=== PATIENT | male | born 1995 | race Caucasian/White ===

== ENCOUNTER 2024-06-14 11:36 | Outpatient (AMB) | payer MEDICAID, SELFPAY ==
[2024-06-14 12:11] VITALS: BP 124/92; PULSE 94; O2SAT 97; BMI 26.1
--- NOTE | 2024-06-14 12:11 | MHC.OFFVIS ---
Vital Signs 06/14/24 12:11 Height 5 ft 6 in Weight 162 lb BMI 26.1 BP 124/92 H Blood Pressure Location Rt brachial Position Sitting Pulse 94 Pulse Source Pulse Oximeter Pulse Oximetry (%) 97 Oxygen Delivery Method Room Air Intake Visit Reasons: ENP-Chronic Migraines - LVM Intake Note: Patient presents for chronic migraines.patient has taken over the counter meds for his migraines. pcp has given patient meds for migraines with no help. Allergies No Known Allergies Allergy (Verified 06/14/24 12:13) Medication List - Last Reconciled 06/14/24 by VIRY Alan budesonide-formoterol 80-4.5 mcg/actuation (Symbicort) 2 puffs inhalation BID qtfiquheuc-jhrpjisijwyxp-obdd 50-300-40 mg 2 caps PO Q4H PRN fluticasone propionate 50 mcg/actuation 1 spray intranasal DAILY magnesium oxide 400 mg PO BEDTIME 30 days montelukast 10 mg PO BEDTIME propranolol ER 120 mg PO BEDTIME 30 days propranolol ER 80 mg PO DAILY riboflavin (vitamin B2) 400 mg PO DAILY 30 days sumatriptan succinate 50 - 100 mg orally at onset of headache, may repeat in 2 hrs PRN; max 2 tabs per day or 4 tabs/week (may take with Ibuprofen) 30 days sumatriptan succinate 4 mg subcutaneously at onset of migraine, may repeat x's 1 in 1 hr (max 8mg/day) PRN; 8 days HPI Comments Details: Right-handed 28-yr-old male presents for new pt evaluation of headache disorder. Pt reports he has had migraine attack since age 11. In the past, the attacks were always pretty frequent and severe, but OTC analgesics were helpful. More recently, however, the migraine attacks become severe quicker and are less treatment responsive. Has had 2 recent ER visits for migraine attacks. PMH and ROS are notable for:? Neuro: ppor vision- has prescription glasses. occasional diplopia- when not focusing or in shower, states he has a lazy eye- not sure which. Notes he cannot close just left eye but can close both eyes or just right eye. Denies eye pain or pain on eye movement. Respiratory d/o: Asthma- controlled on current tx plan, but be exacerbated by pollen count or exertion. Family history of migraine or other headache disorder: Mother has headaches. Pertinent denials include: Musculoskeletal disorders or injury, History of concussion/head injury, Mood d/o, Sleep d/o, CV disease, Clotting or hematology d/o, Endocrine d/o, metabolic d/o, History of seizure, syncope, or drop attacks, GI d/o, Constipation, Leg Cramps, Lifestyle considerations: Sleep routine: Usual bedtime: 10pm-12am and wake-up time: 6-8am Sleep difficulties: Denies. Can be sleepy in a car ride- has strategies to help this. But otherwise denies excessive sleepiness. Caffeine use: 1 12 oz can of coke per week day or 2 cans on the weekend. Substance use: Marijuana- gummies, Alcohol- 1 mixed drink per day. Exercise:? 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 Family planning: No current plans Headache questionnaire:? Previous work-up: None Types of headache disorders: 1 Typical headache characteristics: Prodrome symptoms: Unsure Aura: Denies Pain intensity: Starts mild and becomes severe Location, quality, characteristics: Pressure type pain. Location moves during the attack. Associated symptoms: Blurry vision and watery eyes- rarely when migraine is more severe, milder photophobia, phonophobia, allodynia, nausea, not right in space dizziness, lightheadedness, fatigue, cognitive difficulties, activity intolerance. Cannot lay flat during the migraine, has to sit up and be still. Postdrome: More recently, lingering pain. Triggers: none Time of day: No specific time of day. But more recently is having more nocturnal attacks which wake him up around 2-3am. Duration and Frequency: Has a migraine attack approx once or twice a week, maybe 4-5 days per month. Has lasted up to 2-3 days. How does headache impact your life? Tries to push through work. But has difficulty doing his daily activities. Current acute medication use/interventions: Fioricet for more severe migraine. Current preventative medication use: Propranolol Er 80mg qam. Non-pharmacological interventions: Rest, Ice. [facility] Medical History (Updated 06/14/24 @ 14:20 by VIRY Alan) Migraine Generalized anxiety disorder Asthma Surgical History Hx of appendectomy Family History Mother Diabetes Father HTN (hypertension) Social History (Updated 06/14/24 @ 12:14 by THADDEUS Garcia) Alcohol intake: current Patient Tobacco Use Status: Never used Tobacco Physical Exam Vital Signs: Last Vital Signs Pulse 94 06/14/24 12:11 BP 124/92 H 06/14/24 12:11 Pulse Ox 97 06/14/24 12:11 Oxygen Delivery Method Room Air 06/14/24 12:11 BMI result Body Mass Index 26.1 Const Orientation/consciousness: patient oriented x3 Eyes Pupils: Equal, round and reactive pupils present Resp Effort & Inspection: normal respiratory effort and able to speak in complete sentences Neuro Other: Mild palpebral fissure asymmetry, R > L. Unable to close just left eye alone. Mild left elbow tightness. Negative Peters's Mild left lingual deviation on protrusion. Mallampati stage IV. Evidence of lower frontal teeth wearing. Mild sona jaw tightness w/o crepitus. No palpable scalp tenderness. Mild sona posterior cervical tightness w/ good overall cervical ROM. Romberg- sways but does not lose balance. Tandem- unsteady but able to complete General: patient oriented x3 Cranial nerves: Yes Facial sensation intact/muscles of mastication intact, Yes Equal, round and reactive pupils present, Yes Bilaterally intact EOM present, Yes Symmetric palate elevation present, Yes Ability to bilaterally rotate head present and Yes Ability to bilaterally elevate shoulders present Cognition (Neuro): normal cognition Gait exam (Neuro): Normal gait present Motor exam (neuro): 5/5 motor strength present throughout Deep tendon reflexes (DTR's): Right triceps reflex intensity grade: 3+, Left triceps reflex intensity grade: 3+, Rt Biceps (C5, C6): 2+, Left biceps reflex intensity grade: 2+, Right brachioradialis reflex intensity grade: 2+, Left brachioradialis reflex intensity grade: 2+, Right patellar reflex intensity grade: 2+ and Left patellar reflex intensity grade: 2+ Coordination: [id number]-ah-[id number] test normal, myqu-fz-iyyt test normal and does not sway with eyes open Pupils: Normal pupillary reactivity/response: bilateral Psych Appearance: grossly normal Mental Status: mental status grossly normal Speech and movement: Normal speech and movement present Affect: normal affect Attitude: cooperative Thought process: Normal thought process present Assessment & Plan Assessment & Plan (1) Worsening headaches: Code(s): R51.9 - Headache, unspecified Category: Medical (2) Migraine without aura: Code(s): G43.009 - Migraine without aura, not intractable, without status migrainosus Category: Medical (3) Diplopia: Code(s): H53.2 - Diplopia Category: Medical Plan Pt advised to undergo: Brain MRI w/wo- to assess for secondary etiologies of worsening headaches, as well as diplopia, assymetric palpebral fissure, left lingual deviation on protrusion, mild tightness in right elbow. HST to assess for sleep apnea. For overall headache management: Optimize good self-care, including but not limited to maintaining a healthy diet, adequate fluid intake, adequate sleep, and engaging in regular physical activity. Track headaches, especially after any treatment regimen changes. Migraine [employer] is one of many headache tracking apps. Information shared on non-pharmacological interventions which may help to alleviate headache attack burden. For sound sensitivity: Patent may benefit from trying noise cancellation ear plugs. Nocturnal mouth guard For acute headache treatment: Discussed importance of taking acute medications at the first sign of headache, however stressed importance of avoiding acute medication overuse (especially with combined headache medications). Re-trial Sumatriptan at 100mg dose: 100mg tab, 1/2 - 1 tab (50-100mg) at onset of headache, may repeat in 2 hours. Max of 2 tabs (200mg) per 24 hours. May adjunct with OTC Tylenol 650mg q 4 hours, Ibuprofen 600mg q 6 hours, or Naproxen 440mg q 12 hrs prn. Trial Sumatriptan 4mg sc at onset of nocturnal attack, MR x's 1 (max 8mg/24hrs). Potential adverse effects of triptans, including but not limited to nausea, fatigue, chest tightness/tingling (usually passes within a few minutes), medication overuse headaches. Would not continue Fioricet- this is not indicated for migraine tx and increases risk for medication adaptation headache. Previous acute migraine medication trials: Rizatriptan 10mg- ineffective. Fioricet- ? effect. Acute migraine medication contraindications: None at this time For headache prevention medication: Preventative medications should be taken routinely as prescribed for best effect, it may take several weeks for full effect to take effect. Start Riboflavin 400mg qam Start Magnesium 400mg qhs Increase Propranolol ER from 80mg qam to 120mg qhs, as pt is currently tolerating well. Potential adverse effects of betablockers, include but not limited to fatigue, hypotension, slow heart rate, mood changes, respiratory changes. Previous migraine prevention medication trials: None other Migraine prevention medication contraindications: None at this time Follow-up upon review of above and Pt to follow-up in clinic 3-6 months or sooner prn. Orders: Orders RT home sleep study Today G47.19 - Other hypersomnia, R06.83 - Snoring, R51.9 - Headache, unspecified MR head/brain wo/w con Today H53.2 - Diplopia, K14.8 - Other diseases of tongue, Q67.0 - Congenital facial asymmetry, R51.9 - Headache, unspecified Medications: New propranolol ER Increase Propranolol ER from 80mg to 120mg po daily. 120 mg PO BEDTIME 30 caps 6RF 30 days riboflavin (vitamin B2) 400 mg PO DAILY 30 tabs 6RF 30 days magnesium oxide may hold for loose stools 400 mg PO BEDTIME 30 tabs 6RF 30 days sumatriptan succinate 50 - 100 mg orally at onset of headache, may repeat in 2 hrs PRN; max 2 tabs per day or 4 tabs/week (may take with Ibuprofen) 12 tabs 6RF migraine headache 30 days sumatriptan succinate 4 mg subcutaneously at onset of migraine, may repeat x's 1 in 1 hr (max 8mg/day) PRN; 4 mL 6RF nocturnal migraine attack 8 days G43.009 - Migraine without aura, not intractable, without status migrainosus Coding Level of Care Code New Pt Level 4 (20081) Diagnoses Worsening headaches R51.9 Migraine without aura G43.009 Diplopia H53.2 Earle Sleepiness Scale Questions Sitting and reading: moderate chance of dozing Watching TV: moderate chance of dozing Sitting inactive in a theater, movie etc.: moderate chance of dozing As a passenger in a car for an hour without break: high chance of dozing Lying down in the afternoon when circumstances permit: slight chance of dozing Sitting and talking to someone: would never doze Sitting quietly after lunch without alcohol: slight chance of dozing In a car, while stopped for a few minutes in the traffic: would never doze ESS < 10: normal, ESS > 12: pathologic: 11
== END 2024-06-14 13:45 | disposition home or self-care (01) ==
PROVIDERS: PCP Registered Nurse; Visit Provider Nurse Practitioner Family
DX: R51.9 Headache, unspecified (principal); G43.009 Migraine without aura, not intractable, without status migrainosus; H53.2 Diplopia
CPT/HCPCS: 99204

== ENCOUNTER → 2024-06-14 11:36 | Outpatient (BNVA) | payer MEDICAID, SELFPAY | PROVIDERS: PCP Registered Nurse; Visit Provider Nurse Practitioner Family | DX: G43.909 Migraine, unspecified, not intractable, without status migrainosus (principal); H53.2 Diplopia; Q67.0 Congenital facial asymmetry; G47.19 Other hypersomnia; R06.83 Snoring; F10.90 Alcohol use, unspecified, uncomplicated; F12.90 Cannabis use, unspecified, uncomplicated | CPT/HCPCS: 99212 ==

== ENCOUNTER → 2024-08-12 13:54 | Outpatient (BNV) | payer MEDICAID, SELFPAY | PROVIDERS: PCP Registered Nurse; Visit Provider Radiology Diagnostic Radiology | DX: R51.9 Headache, unspecified (principal) | CPT/HCPCS: 70553 ==

== ENCOUNTER 2024-08-12 13:57 | Outpatient (REF) | payer MEDICAID, SELFPAY ==
--- NOTE | ~2024-08-12 | MR_ITS ---
EXAMINATION: MR BRAIN WITHOUT AND WITH CONTRAST CLINICAL INFORMATION: Headache. COMPARISON: None available. TECHNIQUE: Multiplanar, multisequence MRI of the brain was obtained before and after the intravenous administration of 7 mL Gadavist without reported immediate complications. FINDINGS: Submitted for interpretation on October 12, 2024. No restricted diffusion. No acute intracranial hemorrhage, mass effect, midline shift, hydrocephalus or herniation. Zepeda-white matter differentiation is normal. Posterior cranial fossa contents demonstrated no acute intracranial hemorrhage or mass effect. No intra-axial or extra-axial enhancing mass. Flow-void signal within the main cerebral vessels is normal. Sellar/suprasellar region is normal. Craniocervical junction is intact. Midline structures are normal. There is volume loss in mucosal thickening in the right maxillary sinus.. MR/MR head/brain wo/w con IMPRESSION: No acute or structural brain abnormality. No abnormal enhancement. Chronic right maxillary sinus disease.. Electronically signed by: Cristian Cagle MD 10/12/2024 12:13 PM [facility] [place]
[2024-08-12] MEDS: gadobutroL 7.5 ML VIAL IVPUSH (14:48)
== END 2024-08-12 13:58 | disposition home or self-care (01) ==
LOC: HO.MRI 13:57
PROVIDERS: PCP Registered Nurse; Visit Provider Nurse Practitioner Family
DX: R51.9 Headache, unspecified (principal); Q67.0 Congenital facial asymmetry; K14.8 Other diseases of tongue; H53.2 Diplopia
CPT/HCPCS: 70553; A9585

== ENCOUNTER 2024-12-31 14:59 | Outpatient (AMB) | payer MEDICAID, SELFPAY ==
[2024-12-31 15:10] VITALS: BP 120/84; PULSE 98; O2SAT 97; BMI 25.5
--- NOTE | 2024-12-31 15:10 | A.OFFVIS_ITS ---
Vital Signs 12/31/24 15:10 Height 5 ft 6 in Weight 158 lb BMI 25.5 BP 120/84 Blood Pressure Location Lt brachial Position Sitting Pulse 98 Pulse Source Pulse Oximeter Pulse Oximetry (%) 97 Oxygen Delivery Method Room Air Intake Visit Reasons: Follow up Intake Note: Patient presents follow up migraine. MRI in chart, no HST Executive Director Of Nursing Required: No Accompanied by: Self / Same As Patient Allergies No Known Allergies Allergy (Verified 12/31/24 15:12) Medication List - Last Reconciled 12/31/24 by VIRY Alna budesonide-formoterol 80-4.5 mcg/actuation (Symbicort) 2 puffs inhalation BID fluticasone propionate 50 mcg/actuation 1 spray intranasal DAILY magnesium oxide 400 mg PO BEDTIME 30 days montelukast 10 mg PO BEDTIME propranolol ER 120 mg PO BEDTIME 30 days riboflavin (vitamin B2) 400 mg PO DAILY 90 days sumatriptan succinate 50 - 100 mg orally at onset of headache, may repeat in 2 hrs PRN; max 2 tabs per day or 4 tabs/week (may take with Ibuprofen) 30 days ubrogepant (Ubrelvy) 50 - 100 mg (0.5 - 1 x 100 mg) PO ONCE PRN 30 days HPI Comments Details: The patient is a 29-year-old Right-handed male presenting with migraines. Headaches occur once weekly or more, with at least two migraines noted this week. These are exacerbated by alcohol and marijuana, particularly with insufficient hydration. Migraines last one to eight hours, with some severe episodes. Sumatriptan effectively alleviates symptoms but causes drowsiness and appetite reduction. No migraines have awoken him in the middle of sleep since the last visit. However, can still have migraine headache upon awakening in the am. Increased propranolol showed no signs like lightheadedness but patient reported occasional non-compliance. Past MRI results were normal. Family History - Father and brother with sleep apnea. - Mother with migraines. Review of Systems - Neurological: Reports drowsiness after taking sumatriptan. Denies lightheadedness with propranolol. - General: Reports loss of appetite post sumatriptan. Headache Review - Occurrence: Weekly or more frequent up to every other day at times, recent increase. - Triggers: Alcohol, marijuana, dehydration. - Duration: 1-8 hours, longest had patient considering ER visit. - Associated Symptoms: Drowsiness and appetite reduction from sumatriptan. - Response to Treatment: Effective with sumatriptan, but requires hydration. - Family History: Mother with migraines. - MRI: Normal Medication History - Sumatriptan: As needed for migraines. Effective with symptoms but causes drowsiness and appetite suppression. Used as an oral tablet due to insurance denials for injections. - Propranolol: Increased dose, no adverse effects reported. - Magnesium: Part of preventive migraine regimen. Headache Lifestyle Factors - Reports hydration significantly affecting migraine onset. - Prior non-compliance with propranolol regimen. - Marijuana and alcohol use noted as migraine triggers. Sleep - Reports difficulty sleeping due to migraines; relief noted if sleeping after taking medication. - No episodes of migraines waking patient since last visit. - Morning headaches noted.. Diagnostic results - MRI: Normal findings. - Sleep Study: Not completed. 06/14/2024 initial HPI: Pt reports he has had migraine attack since age 11. In the past, the attacks were always pretty frequent and severe, but OTC analgesics were helpful. More recently, however, the migraine attacks become severe quicker and are less treatment responsive. Has had 2 recent ER visits for migraine attacks. PMH and ROS are notable for:? Neuro: ppor vision- has prescription glasses. occasional diplopia- when not focusing or in shower, states he has a lazy eye- not sure which. Notes he cannot close just left eye but can close both eyes or just right eye. Denies eye pain or pain on eye movement. Respiratory d/o: Asthma- controlled on current tx plan, but be exacerbated by pollen count or exertion. Family history of migraine or other headache disorder: Mother has headaches. Pertinent denials include: Musculoskeletal disorders or injury, History of concussion/head injury, Mood d/o, Sleep d/o, CV disease, Clotting or hematology d/o, Endocrine d/o, metabolic d/o, History of seizure, syncope, or drop attacks, GI d/o, Constipation, Leg Cramps, Lifestyle considerations: Sleep routine: Usual bedtime: 10pm-12am and wake-up time: 6-8am Sleep difficulties: Denies. Can be sleepy in a car ride- has strategies to help this. But otherwise denies excessive sleepiness. Caffeine use: 1 12 oz can of coke per week day or 2 cans on the weekend. Substance use: Marijuana- gummies, Alcohol- 1 mixed drink per day. Exercise:? 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 Family planning: No current plans Headache questionnaire:? Previous work-up: None Types of headache disorders: 1 Typical headache characteristics: Prodrome symptoms: Unsure Aura: Denies Pain intensity: Starts mild and becomes severe Location, quality, characteristics: Pressure type pain. Location moves during the attack. Associated symptoms: Blurry vision and watery eyes- rarely when migraine is mor e severe, milder photophobia, phonophobia, allodynia, nausea, not right in space dizziness, lightheadedness, fatigue, cognitive difficulties, activity intolerance. Cannot lay flat during the migraine, has to sit up and be still. Postdrome: More recently, lingering pain. Triggers: none Time of day: No specific time of day. But more recently is having more nocturnal attacks which wake him up around 2-3am. Duration and Frequency: Has a migraine attack approx once or twice a week, maybe 4-5 days per month. Has lasted up to 2-3 days. How does headache impact your life? Tries to push through work. But has difficulty doing his daily activities. Current acute medication use/interventions: Fioricet for more severe migraine. Current preventative medication use: Propranolol Er 80mg qam. Non-pharmacological interventions: Rest, Ice. [facility] Medical History (Updated 01/13/25 @ 20:03 by VIRY Alan) Migraine Generalized anxiety disorder Asthma Surgical History Hx of appendectomy Family History Mother Diabetes Father HTN (hypertension) Social History Alcohol intake: current Patient Tobacco Use Status: Never used Tobacco Physical Exam Vital Signs: Last Vital Signs Pulse 98 12/31/24 15:10 BP 120/84 12/31/24 15:10 Pulse Ox 97 12/31/24 15:10 Oxygen Delivery Method Room Air 12/31/24 15:10 BMI result Body Mass Index 25.5 Const Orientation/consciousness: patient oriented x3 Resp Effort & Inspection: normal respiratory effort and able to speak in complete sentences Neuro Other: Mild palpebral fissure asymmetry, R > L. Unable to close just left eye alone. General: patient oriented x3 Cognition (Neuro): normal cognition Gait exam (Neuro): Normal gait present Motor exam (neuro): 5/5 motor strength present throughout Psych Appearance: grossly normal Mental Status: mental status grossly normal Speech and movement: Normal speech and movement present Affect: normal affect Assessment & Plan Assessment & Plan (1) Migraine without aura: Code(s): G43.009 - Migraine without aura, not intractable, without status migrainosus Category: Medical (2) Diplopia: Code(s): H53.2 - Diplopia Category: Medical (3) Snoring: Code(s): R06.83 - Snoring Category: Medical (4) Excessive daytime sleepiness: Comment: [place] sleepiness scale- 11 Code(s): G47.19 - Other hypersomnia Category: Medical (5) Worsening headaches: Code(s): R51.9 - Headache, unspecified Category: Medical Plan Reviewed: Brain MRI w/wo- unremarkable HST to assess for sleep apnea- not yet completed. Discussion Notes I discussed with the patient that the suspected primary contributor to his morning headaches could be sleep apnea, and a home sleep test was again advised. We considered alternatives for acute migraine management, as patient has previously not tolerated/had full benefit from sumatriptan and rizatriptan, including the trial of Ubrelvy in conjunction with/without sumatriptan. We reviewed potential medication side effects and the application for authorization to secure insurance coverage for the sumatriptan injection. I underscored the importance of consistent compliance with propranolol and emphasized monitoring hydration levels. The patient was made aware of lifestyle factors, particularly alcohol, as potential migraine triggers and agreed to monitor usage and migraine frequency. We revisited the normal MRI findings and addressed the need to track migraine patterns, and triggers such as substance use. Follow-up for headaches in correlation with a home sleep study was planned. For overall headache management: * Optimize good self-care, including but not limited to maintaining a healthy diet, adequate fluid intake, adequate sleep, and engaging in regular physical activity. * Track headaches, especially after any treatment regimen changes. Migraine [employer]diAnagran is one of many headache tracking apps. * Information previously shared on non-pharmacological interventions which may help to alleviate headache attack burden. For sound sensitivity: Patent may benefit from trying noise cancellation ear plugs. Nocturnal mouth guard * HST to assess for sleep apnea For acute headache treatment: Discussed importance of taking acute medications at the first sign of headache, however stressed importance of avoiding acute medication overuse (especially with combined headache medications). Sumatriptan at 100mg dose: 100mg tab, 1/2 - 1 tab (50-100mg) at onset of headache, may repeat in 2 hours. Max of 2 tabs (200mg) per 24 hours. May adjunct with OTC Tylenol 650mg q 4 hours, Ibuprofen 600mg q 6 hours, or Naproxen 440mg q 12 hrs prn. Hold Sumatriptan 4mg sc order- was denied by insurance. Trial Ubrogepant (Ubrelvy) 100mg tab, 1/2 - 1 tab (50-100mg) at onset of headache, may repeat in 2 hours. Max of 2 tabs (200mg) per 24 hours. May adjunct with OTC Tylenol 650mg q 4 hours, Ibuprofen 600mg q 6 hours, or Naproxen 440mg q 12 hrs prn. Do not take w/ Butalbital (Fioricet or Fiorinal). Potential adverse effects, include but are not limited to fatigue, nausea, dry mouth, constipation Previous acute migraine medication trials: Rizatriptan 10mg- ineffective. Fioricet- ? effect. Acute migraine medication contraindications: None at this time For headache prevention medication: Preventative medications should be taken routinely as prescribed for best effect, it may take several weeks for full effect to take effect. Riboflavin 400mg qam Magnesium 400mg qhs Increase Propranolol ER from 80mg qam to 120mg qhs, as pt is currently tolerating well. Potential adverse effects of betablockers, include but not limited to fatigue, hypotension, slow heart rate, mood changes, respiratory changes. Previous migraine prevention medication trials: None other Migraine prevention medication contraindications: None at this time Follow-up upon review of above and Pt to follow-up in clinic 3-6 months or sooner prn. Orders: Orders RT home sleep study 12/31/24 R06.83 - Snoring, G47.19 - Other hypersomnia Medications: New ubrogepant (Ubrelvy) take at onset of migraine, may repeat in 2hrs (may take w/ Ibuprofen) 50 - 100 mg (0.5 - 1 x 100 mg) PO ONCE PRN 16 tabs 3RF migraine headache 30 days Changed From riboflavin (vitamin B2) 400 mg PO DAILY 30 days 30 tabs 6RF To riboflavin (vitamin B2) 400 mg PO DAILY 90 tabs 3RF 90 days From propranolol ER Increase Propranolol ER from 80mg to 120mg po daily. 120 mg PO BEDTIME 30 days 30 caps 6RF To propranolol ER 120 mg PO BEDTIME 30 caps 6RF 30 days Discontinued sumatriptan succinate Discontinued Reason: Doctor's Order (0.5 mL) 4 mg subcutaneously at onset of migraine, may repeat x's 1 in 1 hr (max 8mg/day) PRN; 8 days 4 mL 6RF nocturnal migraine attack G43.009 - Migraine without aura, not intractable, without statu s migrainosus Coding Level of Care Code Est Pt Level 4 (53108) Diagnoses Migraine without aura G43.009 Diplopia H53.2 Snoring R06.83 Excessive daytime sleepiness G47.19 Worsening headaches R51.9
--- OUTSIDE RECORDS SUMMARY | 2024-12-31 17:11 | XMS_ITS | Clinical Summary ---
Author Organization [facility] Address [address] [place] [address] Care Team Providers Care Labor And Delivery Registered Nurse Name Role Phone Ramonita Berkley BUNDYP-Waylon Primary Care Provider [phone] Source Comments PLEASE NOTE, if this patient is a minor, it may be UNLAWFUL to discuss sensitive information that is contained in these records (such as FAMILY PLANNING, MENTAL HEALTH or SUBSTANCE ABUSE) with the minor patient's parent or other person without the patient's specific authorization.[facility] Allergies No known active allergies Medications fluticasone (FLOVENT) 110 mcg/actuation inhalerIndication s:Moderate persistent asthma without complication Inhale 1 Puff into the lungs 2 (two) times daily 12 g 2 3 Active albuterol HFA 90 mcg/actuation inhalerIndication s:Moderate persistent asthma without complication Inhale 2 Puffs into the lungs every 4 (four) hours as needed for shortness of breath 18 g 2 3 Active rizatriptan (MAXALT) 10 mg tabletIndications :Intractable chronic migraine without aura and without status migrainosus TAKE 1 TABLET BY MOUTH 1 (ONE) TIME NEEDED FOR MIGRAINE FOR UP TO 1 DOSE 15 Tablet 2 4 Active butalbital-acetam inophen-caff 50-325-40 mg per tabletIndications :Intractable chronic migraine without aura and without status migrainosus Take 1 Tablet by mouth every 4 (four) hours as needed for pain not to exceed 6 tablets daily 15 Tablet 4 Active propranolol LA (INDERAL LA) 80 mg 24 hr capsuleIndication s:Intractable chronic migraine without aura and without status migrainosus TAKE 1 CAPSULE BY MOUTH EVERY DAY 90 Capsule 1 4 Active ubrogepant 50 mg tabIndications:In tractable chronic migraine without aura and without status migrainosus Take 50mg as a single dose; if symptoms persist or return, may repeat dose after 2 hours. Maximum: 200 mg per 24 hours 15 Tablet 2 4 Active montelukast (SINGULAIR) 10 mg tabletIndications :Moderate persistent asthma without complication TAKE 1 TABLET BY MOUTH EVERYDAY AT BEDTIME 90 Tablet 1 4 Active fluticasone (FLONASE) 50 mcg/actuation nasal sprayIndications: Moderate persistent asthma without complication SPRAY 1 SPRAY INTO EACH NOSTRIL EVERY DAY 48 mL 1 4 Active budesonide-formot Wade (SYMBICORT) 80-4.5 mcg/actuation inhaler INHALE 2 PUFFS INTO THE LUNGS TWICE A DAY 10.2 g 2 4 Active ketoconazole (NIZORAL) 2 % shampooIndication s:Dandruff Apply topically 2 times a week Apply 5 to 10 mL to wet scalp, lather, leave on 3 to 5 minutes, rinse 120 mL 2 5 Active Active Problems Problem Noted Date Diagnosed Date Moderate persistent asthma without complication 08/15/2023 Anxiety 08/15/2023 Intractable chronic migraine without aura and without status migrainosus 08/15/2023 Dandruff 08/15/2023 Immunizations Name Administration Dates Next Due Flu, Preservative Free 08/15/2023 HPV 9 (Gardasil) 08/15/2023 Pfizer COVID-19 (Comirnaty), Mrna, Lnp-s, Pf, Wallace-sucrose, 30 Mcg/0.3 Ml, 12yr+ 08/15/2023 TDAP 08/08/2022 Family History Medical History Relation Name Comments Hypertension Father Diabetes Mellitus II Mother Relation Name Status Comments Father Alive Mother Alive Social History Tobacco Use Types Packs/Day Years Used Date Smoking Tobacco: Never Smokeless Tobacco: Never Tobacco Cessation:Counseling Given: Not Answered Alcohol Use Standard Drinks/Week Comments Yes 1 (1 standard drink = 0.6 oz pure alcohol) occ, liquor, once a day or every other day Social Connections Answer Date Recorded Connectedness 0 07/15/2024 Financial Resource Strain Answer Date R ecorded Financial Resource Strain 0 2022 Stress Answer Date Recorded Stress 0 08/15/2023 Physical Activity Answer Date Recorded Physical Activity 0 08/15/2023 Food Insecurity Answer Date Recorded Food 0 07/29/2024 Transportation Needs Answer Date Record ed Transportation 0 08/15/2023 Housing Stability Answer Date Recorded Housing 0 08/15/2023 Safety and Environment Answer Date Marcos rded Safety 0 08/15/2023 Utilities Answer Date Recorded Utilities 0 08/15/2023 Employment Answer Date Recorded Stress 0 07/15/2024 Sex and Gender Information Value Date Recorded Sex Assigned at Male 10/01/2023 3:33 AM PST Legal Sex Male 11:37 AM PDT Gender Identity Male 10/01/2023 3:33 AM PST Sexual Orientation Straight 08/15/2023 8: 07 AM PDT Last Filed Vital Signs Vital Sign Reading Time Taken Comments Blood Pressure 121/89 05/14/2024 3:49 PM EDT Pulse 69 05/14/2024 3:49 PM EDT Temperature 37.2 ??C (98.9 ??F) 01/16/2024 3:21 PM ED T Respiratory Rate 16 01/16/2024 3:21 PM EDT Oxygen Saturation - - Inhaled Oxygen Concentration - - Weight 75.7 kg (166 lb 14.4 oz) 01/16/2024 3:21 PM EDT Height 167.6 cm (5' 6 ) 01/16/2024 3:21 PM EDT Body Mass Index 26.94 01/16/2024 3:21 PM EDT Plan of Treatment Upcoming Encounters Date Type Department Care Team (Late st Contact Info) Description 02/03/2025 9:00 AM EDT Office Visit [facility] [address] [place] [address] Hany Carias [address] [place] [address] Health Maintenance Due Date Last Done Comments Imm-Hepatitis B (1 of 3 - 19 + 3-dose series) 2015 Imm-Pneumococcal (1 of 2 - PCV) 2015 Oon-HIMLQ-22 ( season) 2024 023, 09/14/2021 Imm-Influenza (#1) 2024 08/15/2023 Annual Preventive Care Visit 08/15/2024 08/15/2023 Alcohol and Drug Screen 11/03/2024 01/16/2024, 08/15 Depression Annual Screen 11/03/2024 01/16/2024, 08/03 Dental Perio Charting 11/16/2024 11/14/2023 Tobacco Screening 01/15/2025 01/16/2024, 08/15/2023 Hypertension Screening (#1) 05/14/2025 Dental BW 05/16/2025 05/14/2024, 11/14/2023 Dental Examination 05/16/2025 05/14/2024, 11/14/2023 Dental Prophy 05/16/2025 05/14/2024, 11/14/2023 Dental FMX/Pano 11/16/2028 11/14/2023 Imm-DTaP/Tdap/Td (2 - Td or Tdap) 08/08/2032 022 HIV Screening Completed 08/15/2023 Hepatitis C Screening Completed 08/15/2023 Procedures Procedure Name Priority Date/Time Associated Diagnosis Comments BITEWINGS - FOUR RADIOGRAPHIC IMAGES Routine 05/14/2024 3:40 PM EDT Encounter for dental examination PROPHYLAXIS - ADULT Routine 05/14/2024 3 :40 PM EDT Encounter for dental examination PERIODIC ORAL EVALUATION ESTABLISHED PATIENT Routine 05/14/2024 3:40 PM EDT Encounter for dental examination INTRAORAL - COMP SERIES OF RADIOGRAPHIC IMAGES Routine 11/14/2023 3:00 PM EST Encounter for dental examination HIV 1/2 AG & AB W/RFLX (4TH GEN) Routine 08/15/2023 11:08 AM EDT Routine general medical examination at a health care facility HEPATITIS C AB W/RFLX HCV RNA, QT, RT PCR Routine 08/15/2023 11:08 AM EDT Routine general medical examination at a health care facility from Last 3 Months or Most Recently Relevant to Health Maintenance Results * HEPATITIS C AB W/RFLX HCV RNA, QT, RT PCR (08/15/2023 11:08 AM EDT) HEPATITIS C ANTIBODY NON-REACT [place] NON-REACT [place] [facility] Comment: HCV antibody was non-reactive. There is no laboratory evidence of HCV infection. In most cases, no further action is required. However, if recent HCV exposure is suspected, a test for HCV RNA (test code 95940) is suggested. For additional information please refer to http://RingMD.ShopYourWorld/faq/EMY81t5 (This link is being provided for informational/ educational purposes only.) Blood Blood / Unknown 08/15/2023 1 1:08 AM EDT 08/15/2023 11:16 AM EDT Berkley Shipman FAMILY SERVICES MANAGER-C LAB - BLOOD DRAW Edited R esult - Final [facility] [address] [place] [id number], [facility] [address] [address] * HIV 1/2 AG & AB W/RFLX (4TH GEN) (08/15/2023 11:08 AM EDT) Pathologist [facility] HIV AG/AB, 4TH GEN NON-REAC TIVE NON-REAC TIVE [facility] Comment: HIV-1 antigen and HIV-1/HIV-2 antibodies were not detected. There is no laboratory evidence of HIV infection. PLEASE NOTE: This information has been disclosed to you from records whose confidentiality may be protected by state law. ??If your state requires such protection, then the state law prohibits you from making any further disclosure of the information without the specific written consent of the person to whom it pertains, or as otherwise permitted by law. A general authorization for the release of medical or other information is NOT sufficient for this purpose. ?? For additional information please refer to http://RingMD.ShopYourWorld/faq/BIK053 (This link is being provided for informational/ educational purposes only.) The performance of this assay has not been clinically validated in patients less than 2 years old. Blood Blood / Unknown 08/15/2023 1 1:08 AM EDT 08/15/2023 11:16 AM EDT Berkley BAIRES-Waylon LAB - BLOOD DRAW Final Re sult [facility] [address] [address], [facility] [address] [place] [address] from Last 3 Months or Most Recently Relevant to Health Maintenance [place] [facility] [address] [employer] Care Teams Labor And Delivery Registered Nurse Relationship Specialty Start Date End Date Berkley Shipman FNP-C [address] [place] [address] PCP - General Internal Medicine 09/22/23
--- OUTSIDE RECORDS SUMMARY | 2024-12-31 17:11 | XMS_ITS | Clinical Summary ---
Author Organization [facility] it Address [address] [place] [address] Care Team Providers Care Lead Pressman [employer] Name Role Phone Unavailable Primary Care Provider Unavailabl e Social History Tobacco Use Types Packs/Day Years Used Date Smoking Tobacco: Never Assessed Sex and Gender Information Value Date Recorded Sex Assigned at Not on file Legal Sex Male 8:09 PM EST Gender Identity Not on file Sexual Orientation Not on file Plan of Treatment Health Maintenance Due Date Last Done Comments DTaP,Tdap,and Td Vaccines (1 - Tdap) 2015 Hepatitis B Vaccines (1 of 3 - 19+ 3-dose series) 2015 Depression Screening 11/27/2023 HIV Screening 11/27/2023 Hepatitis C Screening 11/27/2023 Social Influencers of Health Screening 11/27/2023 COVID-19 Vaccine ( - 2023-2 5 season) 2024 Influenza Vaccine (#1) 2024 HIB Vaccines Aged Out No longer eligi ble based on patient's age to complete this topic HPV Vaccines Aged Out No longer eligi ble based on patient's age to complete this topic Hepatitis A Vaccines Aged Out No long er eligible based on patient's age to complete this topic IPV Vaccines Aged Out No longer eligi ble based on patient's age to complete this topic MMR Vaccines Aged Out No longer eligi ble based on patient's age to complete this topic Meningococcal ACWY Vaccine Aged Out N o longer eligible based on patient's age to complete this topic Meningococcal B Vacine Aged Out No lo nger eligible based on patient's age to complete this topic Pneumococcal Vaccine: Pediat rics (0 to 5 Years) and At-Risk Patients (6 to 64 Years) Aged Out No longer eligible b ased on patient's age to complete this topic RSV Immunization Patients Un maxime 20 months Aged Out No longer eligible b ased on patient's age to complete this topic Varicella Vaccines Aged Out No longer eligible based on patient's age to complete this topic
== END 2024-12-31 16:17 | disposition home or self-care (01) ==
PROVIDERS: PCP Registered Nurse; Visit Provider Nurse Practitioner Family
DX: G43.009 Migraine without aura, not intractable, without status migrainosus (principal); H53.2 Diplopia; R06.83 Snoring; G47.19 Other hypersomnia; R51.9 Headache, unspecified
CPT/HCPCS: 99214

== ENCOUNTER → 2024-12-31 14:59 | Outpatient (BNVA) | payer MEDICAID, SELFPAY | PROVIDERS: PCP Registered Nurse; Visit Provider Nurse Practitioner Family | DX: G43.009 Migraine without aura, not intractable, without status migrainosus (principal); H53.2 Diplopia; R06.83 Snoring; G47.19 Other hypersomnia | CPT/HCPCS: 99212 ==

== ENCOUNTER → 2025-03-14 09:04 | Outpatient (REF) | payer MEDICAID, SELFPAY ==
--- OUTSIDE RECORDS SUMMARY | 2025-03-14 09:13 | XMS_ITS | Clinical Summary ---
Author Organization [facility] Address [address] [place] [address] Care Team Providers Care Automatic Trimming Sewer Name Role Phone Ramonita Berkley BUNDYP-Waylon Primary Care Provider [phone] Source Comments PLEASE NOTE, if this patient is a minor, it may be UNLAWFUL to discuss sensitive information that is contained in these records (such as FAMILY PLANNING, MENTAL HEALTH or SUBSTANCE ABUSE) with the minor patient's parent or other person without the patient's specific authorization.[facility] Allergies No known active allergies Medications fluticasone (FLOVENT) 110 mcg/actuation inhalerIndicatio ns:Moderate persistent asthma without complication ([facility]) Inhale 1 Puff into the lungs 2 (two) times daily 12 g 2 08/15/20 23 Active albuterol HFA 90 mcg/actuation inhalerIndicatio ns:Moderate persistent asthma without complication ([facility]CC) Inhale 2 Puffs into the lungs every 4 (four) hours as needed for shortness of breath 18 g 2 08/15/20 23 Active rizatriptan (MAXALT) 10 mg tabletIndication s:Intractable chronic migraine without aura and without status migrainosus TAKE 1 TABLET BY MOUTH 1 (ONE) TIME NEEDED FOR MIGRAINE FOR UP TO 1 DOSE 15 Tablet 2 04/13/20 24 Active butalbital-aceta minophen-caff 50-325-40 mg per tabletIndication s:Intractable chronic migraine without aura and without status migrainosus Take 1 Tablet by mouth every 4 (four) hours as needed for pain not to exceed 6 tablets daily 15 Tablet 04/27/20 24 Active propranolol LA (INDERAL LA) 80 mg 24 hr capsuleIndicatio ns:Intractable chronic migraine without aura and without status migrainosus TAKE 1 CAPSULE BY MOUTH EVERY DAY 90 Capsule 1 05/13/20 24 Active ubrogepant 50 mg tabIndications:I ntractable chronic migraine without aura and without status migrainosus Take 50mg as a single dose; if symptoms persist or return, may repeat dose after 2 hours. Maximum: 200 mg per 24 hours 15 Tablet 2 05/21/20 24 Active fluticasone (FLONASE) 50 mcg/actuation nasal sprayIndications :Moderate persistent asthma without complication ([facility]) SPRAY 1 SPRAY INTO EACH NOSTRIL EVERY DAY 48 mL 1 08/18/20 24 Active budesonide-formo teroL (SYMBICORT) 80-4.5 mcg/actuation inhaler INHALE 2 PUFFS INTO THE LUNGS TWICE A DAY 10.2 g 2 10/26/20 24 Active montelukast (SINGULAIR) 10 mg tabletIndication s:Moderate persistent asthma without complication ([facility]) TAKE 1 TABLET BY MOUTH EVERYDAY AT BEDTIME 90 Tablet 1 03/01/20 25 Active ketoconazole (NIZORAL) 2 % shampooIndicatio ns:Dandruff APPLY TOPICALLY 2 TIMES A WEEK APPLY 5 TO 10 ML TO WET SCALP, LATHER, LEAVE ON 3 TO 5 MINUTES, RINSE 120 mL 2 03/03/20 25 Active montelukast (SINGULAIR) 10 mg tabletIndication s:Moderate persistent asthma without complication ([facility]) TAKE 1 TABLET BY MOUTH EVERYDAY AT BEDTIME 90 Tablet 1 08/18/20 24 025 Discontinued ketoconazole (NIZORAL) 2 % shampooIndicatio ns:Dandruff Apply topically 2 times a week Apply 5 to 10 mL to wet scalp, lather, leave on 3 to 5 minutes, rinse 120 mL 2 11/18/19 25 025 Discontinued Active Problems Problem Noted Date Diagnosed Date Moderate persistent asthma without complication ([facility]) 08/15/2023 Anxiety 08/15/2023 Intractable chronic migraine without aura and without status migrainosus 08/15/2023 Dandruff 08/15/2023 Immunizations Immunization Administration Dates Next Due Flu, Preservative Free [...] Weight 75.7 kg (166 lb 14.4 oz) 024 3:21 PM EDT Height 167.6 cm (5' 6 ) 01/16/2024 3:21 PM EDT Body Mass Index 26.94 01/16/2024 3:21 PM EDT Plan of Treatment Upcoming Encounters Date Type Department Care Team (Late st Contact Info) Description 04/06/2025 11:00 AM EDT Office Visit [facility] [address] [place] [phone] Marva San [address] [place] [address] Health Maintenance Due Date Last Done Comments Anxiety Screening 1996 08/28/2023 Imm-Hepatitis B (1 of 3 - 19 + 3-dose series) 2015 Imm-Pneumococcal (1 of 2 - PCV) 2015 [id number] ( season) 2024 023, 09/14/2021 Imm-Influenza (#1) 2024 08/15/2023 Annual Preventive Care Visit 08/15/2024 08/15/2023 Alcohol and Drug Screen 11/03/2024 01/16/2024, 08/15 Depression Annual Screen 11/03/2024 01/16/2024, 08/03 Dental Perio Charting 11/16/2024 11/14/2023 Hypertension Screening (#1) 05/14/2025 Dental BW 05/16/2025 05/14/2024, 11/14/2023 Dental Examination 05/16/2025 05/14/2024, 11/14/2023 Dental Prophy 05/16/2025 05/14/2024, 11/14/2023 Tobacco Screening 05/21/2025 05/21/2024, , 08/15/2023 Dental FMX/Pano 11/16/2028 11/14/2023 Imm-DTaP/Tdap/Td (2 - [...] HEPATITIS C ANTIBODY NON-REACT [place] NON-REACT [place] [facility] Comment: HCV antibody was non-reactive. There is no laboratory evidence of HCV infection. In most cases, no further action is required. However, if recent HCV exposure is suspected, a test for HCV RNA (test code 90824) is suggested. For additional information please refer to http://education.Truffls/faq/TCQ25p8 (This link is being provided for informational/ educational purposes only.) Blood Blood / Unknown 08/15/2023 1 1:08 AM EDT 08/15/2023 11:16 AM EDT Berkley Shipman TIMING INSPECTOR-C LAB - BLOOD DRAW Edited R esult - Final [facility] [address] [address], [facility] [address] [address] * HIV 1/2 AG & AB W/RFLX (4TH GEN) (08/15/2023 11:08 AM EDT) HIV AG/AB, 4TH GEN NON-REAC TIVE NON-REAC TIVE [facility] Comment: HIV-1 antigen and HIV-1/HIV-2 antibodies were [...] ?? For additional information please refer to http://education.Truffls/faq/AGA834 (This link is being provided for informational/ educational purposes only.) The performance of this assay has not been clinically validated in patients less than 2 years old. Blood Blood / Unknown 08/15/2023 1 1:08 AM EDT 08/15/2023 11:16 AM EDT Berkley Shipman TIMING INSPECTOR-C LAB - BLOOD DRAW Final Re sult [facility] [address] [address], [facility] [address] [place] [address] from Last 3 Months or Most Recently Relevant to Health Maintenance [place] [facility] [address] [employer] Care Teams Automatic Trimming Sewer Relationship Specialty Start Date End Date Berkley Shipman FNP-C [address] [place] [address] PCP - General Internal Medicine 09/22/23
--- OUTSIDE RECORDS SUMMARY | 2025-03-14 09:13 | XMS_ITS | Clinical Summary ---
Author Organization [facility] Address [address] [place] [address] Care Team Providers Care Physician/Ophthalmologist Name Role Phone Unavailable Primary Care Provider [...] - 2023-2 5 season) 2024 Influenza Vaccine (Season Ended) 2025 HIB Vaccines Aged Out No longer eligi [...] age to complete this topic Meningococcal B Vaccine Aged Out No l onger eligible based on patient's age to complete [...]
== END ==
LOC: HO.SL 09:04
PROVIDERS: PCP Registered Nurse; Visit Provider Nurse Practitioner Family
DX: G47.19 Other hypersomnia (principal); R06.83 Snoring
CPT/HCPCS: 95806

== ENCOUNTER → 2025-03-14 09:13 | Outpatient (BNV) | payer MEDICAID, SELFPAY | PROVIDERS: PCP Registered Nurse; Visit Provider Psychiatry & Neurology Neurology | DX: R06.83 Snoring (principal) | CPT/HCPCS: 95806 ==

== ENCOUNTER 2025-07-05 13:56 | Outpatient (AMB) | payer MEDICAID, SELFPAY ==
--- OUTSIDE RECORDS SUMMARY | 2025-07-02 09:00 | XMS_ITS | Encounter Summary ---
Author Organization [facility] Address [address] [address] Care Team Providers Care Hair Sample Matcher Name Role Phone Berkley Shipman-Waylon Primary Care Provider [phone] Reason for Visit * Reason Comments Dental Hygiene/ Preventive RECALL Encounter Details Date Type Department Care Team ([facility] Contact Info) Description 07/02/2025 9:00 AM EDT Office Visit [address] [phone] Marva San [address] [place] [address] Social History Tobacco Use Types Packs/Day Years Used Date Smoking Tobacco: Never Smokeless Tobacco: Never Alcohol Use Standard Drinks/Week Comments Yes 1 [...] Orientation Straight 08/15/2023 8: 07 AM PDT documented as of this encounter Progress Notes * Marva San - 07/02/2025 10:45 AM EDT Prophy Subjective Myron Moraes, 29 year old male, presents alone for prophy. Psychometrist: No Chief Complaint Patient presents with Dental Hygiene/ Preventive RECALL Objective RMHx: Yes Vitals: There were no vitals filed for this visit. Assessment EOE/IOE/Oral Cancer Screen: WNL Oral Hygiene: Poor Home Care: Toothbrush 1 x per day, Floss 0 x per day Fluoride exposure: toothpaste Plaque: Generalized Severe Calculus: Generalized Severe Gingival Description: Erythematous Inflammation: Generalized Severe Recession: None Bone Loss: None Staining: None PSR: Yes Periodontal Screening Full Perio Charting completed: Yes Dx: Z01.20 Encounter for dental examination (primary encounter diagnosis) DH Dx Details: DR OTT EXAM Plan CONSULT FOR 3rd MOLARS RECALL Informed Consent/PARQ (Procedure, Alternatives, Risks, Questions): Patient confirms informed consent using PARQ. Dental procedures in this visit D9450 - CASE PRESENTATION SUBS DTL & EXTENSIVE TX PLN (Completed) Service provider: Marva San Billvan provider: Epi Mancia DMD TX993 - ORAL CANCER SCREENING (Completed) Service provider: Marva San Billvan provider: Epi Mancia DMD D1330 - ORAL HYGIENE INSTRUCTIONS (Completed) Service provider: Marva San Billvan provider: Epi Mancia DMD D1310 - NUTRITIONAL COUNSELING CONTROL OF DENTAL DISEASE (Completed) Service provider: Marva San Billvan provider: Epi Mancia DMD D0603 - CARIES RISK ASSESSMENT & DOC FINDING HIGH RISK (Completed) Service provider: Marva San Billvan provider: Epi Mancia DMD D0274 - BITEWINGS - FOUR RADIOGRAPHIC IMAGES (Completed) Service provider: Marva San Billing provider: Epi Mancia DMD D0180 - COMP PERIODONTAL EVALUATION - NEW/EST PATIENT (Completed) Service provider: Marva San Billvan provider: Epi Mancia DMD D1110 - PROPHYLAXIS - ADULT (Completed) Service provider: Marva San Billing provider: Epi Mancia DMD D9993 - DENTAL CASE MANAGEMENT - MOTIVATIONAL INTV (Completed) Service provider: Marva San Billing provider: Epi Mancia DMD D0120 - PERIODIC ORAL EVALUATION ESTABLISHED PATIENT (Completed) Service provider: Marva San Billing provider: Epi Mancia DMD Prophy completed with ultrasonic shredder/granulator operator and hand scaling OHI & Nutrition counseling provided, discussed: Periodontal disease Post-Op Information Given: verbal Referral: No orders of the following type(s) were placed in this encounter: Referral. Rx: No orders of the defined types were placed in this encounter. Behavior: Excellent NV: Recall documented in this encounter Miscellaneous Notes * Patient Instructions - Marva San - 07/02/2025 9:18 AM EDT If you are not able to keep your appointment please call 24-48 hours before your appointment to cancel or reschedule. documented in this encounter Plan of Treatment Upcoming Encounters Date Type Department Care Team (Late st Contact Info) Description 09/07/2025 9:40 AM EST Office Visit [facility] [address] [place] [phone] Epi Willett DDS [address] [place] [address] 01/03/2026 9:40 AM EST Office Visit [facility] [address] [place] [phone] Marva San [address] [place] [phone] Scheduled Orders Name Type Priority Associated Diagnoses Order Schedule INTRAORAL - COMP SERIES OF RADIOGRAPHIC IMAGES Dental Procedures Routine 1 Occurren crissy starting 07/02/2025 PANORAMIC RADIOGRAPHIC IMAGE Dental Procedures Routine 1 Occurrenc es starting 07/02/2025 documented as of this encounter Procedures Procedure Name Priority Date/Time Associated Diagnosis Comments ORAL CANCER SCREENING Routine 07/02/2025 9:00 AM EDT Encounter for dental examination DENTAL CASE MANAGEMENT - MOTIVATIONAL INTV Routine 07/02/2025 9:00 AM EDT Encounter for dental examination CARIES RISK ASSESSMENT & DOC FINDING HIGH RISK Routine 07/02/2025 9:00 AM EDT Encounter for dental examination CASE PRESENTATION SUBS DTL & EXTENSIVE TX PLN Routine 07/02/2025 9:00 AM EDT Encounter for dental examination COMP PERIODONTAL EVALUATION - NEW/EST PATIENT Routine 07/02/2025 9:00 AM EDT Encounter for dental examination ORAL HYGIENE INSTRUCTIONS Routine 07/02/2025 9:00 AM EDT Encounter for dental examination NUTRITIONAL COUNSELING CONTROL OF DENTAL DISEASE Routine 07/02/2025 9:00 AM EDT Encounter for dental examination PROPHYLAXIS - ADULT Routine 07/02/2025 9 :00 AM EDT Encounter for dental examination BITEWINGS - FOUR RADIOGRAPHIC IMAGES Routine 07/02/2025 9:00 AM EDT Encounter for dental examination PERIODIC ORAL EVALUATION ESTABLISHED PATIENT Routine 07/02/2025 9:00 AM EDT Encounter for dental examination documented in this encounter Visit Diagnoses Diagnosis Encounter for dental examination- Primary Dental examination documented in this encounter Additional Health Concerns Assessment Noted Time PHQ-9 Depression Total Score: 0 01/16/20 24 3:21 PM PDT A Depression follow-up plan has been documented for the patient 05/03/2024 12:40 AM PDT documented as of this encounter Care Teams Hair Sample Matcher Relationship Specialty Start Date End Date Berkley Shipman FNP-C [facility] [place] [address] PCP - General Internal Medicine 09/22/23 documented as of this encounter
--- NOTE | 2025-07-05 13:57 | A.OFFVIS_ITS ---
Vital Signs 07/05/25 13:58 Height 5 ft 6 in Weight 158 lb 2 oz BMI 25.5 BP 110/78 Blood Pressure Location Rt brachial Position Sitting Pulse 82 Pulse Source Pulse Oximeter Pulse Oximetry (%) 98 Oxygen Delivery Method Room Air Intake Visit Reasons: 6 mo follow up Intake Note: Follow up care Cork Insulator Helper Required: No Accompanied by: Self / Same As Patient Allergies No Known Allergies Allergy (Verified 07/05/25 13:58) Medication List - Last Reconciled 07/05/25 by VIRY Alan budesonide-formoterol 80-4.5 mcg/actuation (Symbicort) 2 puffs inhalation BID fluticasone propionate 50 mcg/actuation 1 spray intranasal DAILY magnesium oxide 400 mg PO BEDTIME 30 days montelukast 10 mg PO BEDTIME propranolol ER 120 mg PO BEDTIME 30 days riboflavin (vitamin B2) 400 mg PO DAILY 90 days sumatriptan succinate 50 - 100 mg orally at onset of headache, may repeat in 2 hrs PRN; max 2 tabs per day or 4 tabs/week (may take with Ibuprofen) 30 days ubrogepant (Ubrelvy) 50 - 100 mg (0.5 - 1 x 100 mg) PO ONCE PRN 30 days HPI Comments Details: 29-year-old Right-handed male presenting for follow-up on migraine. He denies any significant medical history changes. He is having 1 -3 migraine attacks per week, as long as he is compliant with/ the propranolol and mag. If he does not take the propranolol and mag, he may have an almost daily migraine. He notes he only forgets to take these as he can have difficulty maintaining his medication regimen at home- he may just go to bed and forget to take it. Since his last visit, he started Ubrelvy, which he prefers to sumatriptan, as it is more effective and better tolerated. He notes that he believes the reason he had difficulty being compliant with his medication regimen as I he possibly could have ADHD, as this was previously suggested to him during an evaluation for support services. Unfortunately, this was not addressed with him again, and he has never had forming testing. 06/14/2024 initial HPI: Pt reports he has had migraine attack since age 11. In the past, the attacks were always pretty frequent and severe, but OTC analgesics were helpful. More recently, however, the migraine attacks become severe quicker and are less treatment responsive. Has had 2 recent ER visits for migraine attacks. PMH and ROS are notable for:? Neuro: ppor vision- has prescription glasses. occasional diplopia- when not focusing or in shower, states he has a lazy eye- not sure which. Notes he cannot close just left eye but can close both eyes or just right eye. Denies eye pain or pain on eye movement. Respiratory d/o: Asthma- controlled on current tx plan, but be exacerbated by pollen count or exertion. Family history of migraine or other headache disorder: Mother has headaches. Pertinent denials include: Musculoskeletal disorders or injury, History of concussion/head injury, Mood d/o, Sleep d/o, CV disease, Clotting or hematology d/o, Endocrine d/o, metabolic d/o, History of seizure, syncope, or drop attacks, GI d/o, Constipation, Leg Cramps, Lifestyle considerations: Sleep routine: Usual bedtime: 10pm-12am and wake-up time: 6-8am Sleep difficulties: Denies. Can be sleepy in a car ride- has strategies to help this. But otherwise denies excessive sleepiness. Caffeine use: 1 12 oz can of coke per week day or 2 cans on the weekend. Substance use: Marijuana- gummies, Alcohol- 1 mixed drink per day. Exercise:? 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 Family planning: No current plans Headache questionnaire:? Previous work-up: None Types of headache disorders: 1 Typical headache characteristics: Prodrome symptoms: Unsure Aura: Denies Pain intensity: Starts mild and becomes severe Location, quality, characteristics: Pressure type pain. Location moves during the attack. Associated symptoms: Blurry vision and watery eyes- rarely when migraine is more severe, milder photophobia, phonophobia, allodynia, nausea, not right in space dizziness, lightheadedness, fatigue, cognitive difficulties, activity intolerance. Cannot lay flat during the migraine, has to sit up and be still. Postdrome: More recently, lingering pain. Triggers: none Time of day: No specific time of day. But more recently is having more nocturnal attacks which wake him up around 2-3am. Duration and Frequency: Has a migraine attack approx once or twice a week, maybe 4-5 days per month. Has lasted up to 2-3 days. How does headache impact your life? Tries to push through work. But has difficulty doing his daily activities. Current acute medication use/interventions: Fioricet for more severe migraine. Current preventative medication use: Propranolol Er 80mg qam. Non-pharmacological interventions: Rest, Ice. [facility] Medical History (Updated 07/05/25 @ 21:39 by VIRY Alan) Migraine Generalized anxiety disorder Asthma Surgical History Hx of appendectomy Family History Mother Diabetes Father HTN (hypertension) Social History Alcohol intake: current Patient Tobacco Use Status: Never used Tobacco Physical Exam Vital Signs: Last Vital Signs Pulse 82 07/05/25 13:58 BP 110/78 07/05/25 13:58 Pulse Ox 98 07/05/25 13:58 Oxygen Delivery Method Room Air 07/05/25 13:58 BMI result Body Mass Index 25.5 Const Orientation/consciousness: patient oriented x3 Resp Effort & Inspection: normal respiratory effort and able to speak in complete sentences Neuro Other: Mild palpebral fissure asymmetry, R > L. Unable to close just left eye alone. General: patient oriented x3 Cognition (Neuro): normal cognition Gait exam (Neuro): Normal gait present Motor exam (neuro): 5/5 motor strength present throughout Psych Appearance: grossly normal Mental Status: mental status grossly normal Speech and movement: Normal speech and movement present Affect: normal affect Assessment & Plan Assessment & Plan (1) Migraine without aura: Code(s): G43.009 - Migraine without aura, not intractable, without status migrainosus Category: Medical Qualifiers: Status migrainosus presence: without status migrainosus Intractability: not intractable Qualified Code(s): G43.009 - Migraine without aura, not intractable, without status migrainosus (2) Diplopia: Code(s): H53.2 - Diplopia Category: Medical (3) Snoring: Code(s): R06.83 - Snoring Category: Medical (4) Excessive daytime sleepiness: Comment: Epping sleepiness scale- 11 Code(s): G47.19 - Other hypersomnia Category: Medical (5) Worsening headaches: Code(s): R51.9 - Headache, unspecified Category: Medical (6) Forgetfulness: Code(s): R68.89 - Other general symptoms and signs Category: Medical (7) Impaired executive functioning: Code(s): R41.844 - Frontal lobe and executive function deficit Category: Medical Plan Previous workup: 08/2024, Brain MRI w/wo- unremarkable Reviewed: 03/17/2025, HST, showed snoring, however did not show evidence for sleep apnea with AHI 0 per hour and O2 louise 83% (and SpO2 under 88% recorded as minutes), an average SpO2 96%. For overall headache management: * Optimize good self-care, including but not limited to maintaining a healthy diet, adequate fluid intake, adequate sleep, and engaging in regular physical activity. * Track headaches, especially after any treatment regimen changes. Migraine Moya Okruga is one of many headache tracking apps. * Information previously shared on non-pharmacological interventions which may help to alleviate headache attack burden. For sound sensitivity: Patent may benefit from trying noise cancellation ear plugs. Nocturnal mouth guard * We will request neuropsych evaluation for possible ADHD, as patient reports symptoms suggestive of ADHD, which are interfering with his ability to be compliant with his medication regimen, which he would like to be more compliant with. For acute headache treatment: Discussed importance of taking acute medications at the first sign of headache, however stressed importance of avoiding acute medication overuse (especially with combined headache medications). * Discontinue Sumatriptan 100 mg-not fully effective and not well tolerated * Continue Ubrogepant (Ubrelvy) 100mg tab, 1/2 - 1 tab (50-100mg) at onset of headache, may repeat in 2 hours. Max of 2 tabs (200mg) per 24 hours. * May adjunct with OTC Tylenol 650mg q 4 hours, Ibuprofen 600mg q 6 hours, or Naproxen 440mg q 12 hrs prn. Do not take w/ Butalbital (Fioricet or Fiorinal). * Previous acute migraine medication trials: Rizatriptan 10mg- ineffective. Sumatriptan 100 mg-not fully effective and not well tolerated Fioricet- ? effect. * Request for Sumatriptan 4mg sc order- was denied by insurance. * Acute migraine medication contraindications: None at this time For headache prevention medication: Preventative medications should be taken routinely as prescribed for best effect, it may take several weeks for full effect to take effect. * Riboflavin 400mg qam * Magnesium 400mg qhs * Continue Propranolol ER 120mg qhs, as pt is currently tolerating well., however would not increase further due to low normal BP. * Start Amitriptyline 10mg daily at bedtime. * Potential side effects include but are not limited to fatigue, cardiac arrhythmias, mood changes. Previous migraine prevention medication trials: None other Migraine prevention medication contraindications: None at this time Future considerations: CGRP monoclonal antibody Follow-up upon review of above and Pt to follow-up in clinic 3-6 months or sooner prn. Orders: Referrals Neuropsychiatry Referral R41.844 - Frontal lobe and executive function deficit, R68.89 - Other general symptoms and signs Medications: New amitriptyline by 9pm 10 mg PO BEDTIME 30 tabs 3RF 30 days Refilled ubrogepant (Ubrelvy) take at onset of migraine, may repeat in 2hrs (may take w/ Ibuprofen) 50 - 100 mg (0.5 - 1 x 100 mg) PO ONCE PRN 16 tabs 3RF migraine headache 30 days Discontinued sumatriptan succinate Discontinued Reason: Doctor's Order (0.5 - 1 x 100 mg) 50 - 100 mg orally at onset of headache, may repeat in 2 hrs PRN; max 2 tabs per day or 4 tabs/week (may take with Ibuprofen) 30 days 12 tabs 6RF migraine headache Coding Level of Care Code Est Pt Level 4 (74829) Diagnoses Migraine without aura and without status migrainosus, not intractable G43.009 Status migrainosus presence: without status migrainosus Intractability: not intractable Diplopia H53.2 Snoring R06.83 Excessive daytime sleepiness G47.19 Worsening headaches R51.9 Forgetfulness R68.89 Impaired executive functioning R41.844
[2025-07-05 13:58] VITALS: BP 110/78; PULSE 82; O2SAT 98; BMI 25.5
--- OUTSIDE RECORDS SUMMARY | 2025-07-05 15:10 | XMS_ITS | Clinical Summary ---
Author Organization [facility] it Address [address] [place] [address] Care Team Providers Care Certified Registered Dental Assistant Name Role Phone Unavailable Primary Care Provider [...] of 3 - 19+ 3-dose series) 2015 HIV Screening 11/27/2023 Hepatitis C Screening 11/27/2023 Social Influencers of Health Screening 11/27/2023 Depression Screening 11/03/2024 COVID-19 Vaccine ( - 2023-2 5 season) 2025 Influenza Vaccine (#1) 2025 HIB Vaccines Aged Out No longer [...] 5 Years) and At-Risk Patients (6 to 49 Years) Aged Out No longer eligible b ased on patient's age to complete this topic RSV Immunization Patients Un maxime 20 months Aged Out No longer eligible b ased on patient's age to complete this topic Varicella Vaccines Aged Out No longer eligible based on patient's age to complete this topic
--- OUTSIDE RECORDS SUMMARY | 2025-07-05 15:10 | XMS_ITS | Clinical Summary ---
Author Organization [facility] Address [address] [place] [address] Care Team Providers Care Core Carrier Name Role Phone Ramonita Berkley BAIRES-Waylon Primary Care Provider [phone] Source Comments PLEASE NOTE, if this patient [...] hours 15 Tablet 2 05/21/20 24 Active montelukast (SINGULAIR) 10 mg tabletIndication s:Moderate persistent asthma without complication ([facility]) TAKE 1 TABLET BY MOUTH EVERYDAY AT BEDTIME 90 Tablet 1 03/01/20 25 Active SYMBICORT 80-4.5 mcg/actuation inhaler INHALE 2 PUFFS INTO THE LUNGS TWICE A DAY 10.2 Each 2 04/01/20 25 Active ketoconazole (NIZORAL) 2 % shampooIndicatio ns:Dandruff APPLY TOPICALLY 2 TIMES A WEEK APPLY 5 TO 10 ML TO WET SCALP, LATHER, LEAVE ON 3 TO 5 MINUTES, RINSE 120 mL 2 06/13/20 25 Active fluticasone (FLONASE) 50 mcg/actuation nasal sprayIndications :Moderate persistent asthma without complication ([facility]) SPRAY 1 SPRAY INTO EACH NOSTRIL EVERY DAY 32 mL 1 06/30/20 25 Active ketoconazole (NIZORAL) 2 % shampooIndicatio ns:Dandruff APPLY TOPICALLY 2 TIMES A WEEK APPLY 5 TO 10 ML TO WET SCALP, LATHER, LEAVE ON 3 TO 5 MINUTES, RINSE 120 mL 2 03/03/20 25 025 Discontinued fluticasone (FLONASE) 50 mcg/actuation nasal sprayIndications :Moderate persistent asthma without complication ([facility]) Place [address] [place] in both nostrils once daily. 16 g 2 03/24/20 25 025 Discontinued Active Problems Problem Noted Date Diagnosed Date Moderate persistent asthma without complication ([facility]) 08/15/2023 Anxiety 08/15/2023 Intractable chronic migraine without aura and without status migrainosus 08/15/2023 Dandruff 08/15/2023 Encounters Date Type Department Care Team Description 07/02/2025 9:00 AM EDT Office Visit [facility] [address] [place] [address] Dyan Sanfer from Last 3 Months Immunizations Immunization Administration Dates Next Due Flu, [...] 69 05/14/2024 3:49 PM EDT Temperature 37.2 C (98.9 F) 01/16/2024 3:21 PM EDT Respiratory Rate 16 01/16/2024 3:21 PM EDT [...] Description 09/07/2025 9:40 AM EST Office Visit [facility] [address] [place] [phone] Epi Willett DDS [address] [place] [address] 01/03/2026 9:40 AM EST Office Visit [facility] [address] [place] [phone] Marva San [address] [place] [address] Health Maintenance Due Date Last Done Comments Imm-Hepatitis B (1 of 3 - 19 + 3-dose series) 2015 Imm-Pneumococcal (1 of 2 - PCV) 2015 [id number] ( season) 2024 023, 09/14/2021 Annual Wellness (Adult): Ind icated (All Coverage) 08/15/2024 08/15/2023 Anxiety Screening 08/28/2024 08/28/2023 Alcohol and Drug Screen 11/03/2024 01/16/2024, 08/15 Depression Annual Screen 11/03/2024 01/16/2024, 08/03 Tobacco Screening 01/15/2025 07/02/2025, , 08/15/2023 Hypertension Screening (#1) 05/14/2025 Imm-Influenza (#1) 2025 08/15/2023 Dental BW 07/04/2026 07/02/2025, 05/03, 11/14/2023 Dental Examination 07/04/2026 07/02/2025, 0 05/14/2024, 11/14/2023 Dental Perio Charting 07/04/2026 07/02/2025 Dental Prophy 07/04/2026 07/02/2025, 05/03, 11/14/2023 Dental FMX/Pano 11/16/2028 11/14/2023 Imm-DTaP/Tdap/Td (2 - Td or Tdap) 08/08/2032 022 HIV Screening Completed 08/15/2023 Hepatitis C Screening Completed 08/15/2023 Procedures Procedure Name Priority Date/Time Associated Diagnosis Comments PERIODIC ORAL EVALUATION ESTABLISHED PATIENT Routine 07/02/2025 9:00 AM EDT Encounter for dental examination DENTAL CASE MANAGEMENT - MOTIVATIONAL INTV Routine 07/02/2025 9:00 AM EDT Encounter for dental examination PROPHYLAXIS - ADULT Routine 07/02/2025 9 :00 AM EDT Encounter for dental examination COMP PERIODONTAL EVALUATION - NEW/EST PATIENT Routine 07/02/2025 9:00 AM EDT Encounter for dental examination BITEWINGS [...] AM EDT Encounter for dental examination ORAL CANCER SCREENING Routine 07/02/2025 9:00 AM EDT Encounter for dental examination CASE PRESENTATION SUBS DTL & EXTENSIVE TX PLN Routine 07/02/2025 9:00 AM EDT Encounter for dental examination INTRAORAL - [...] Recently Relevant to Health Maintenance Results * Hep C Antibody with Reflex HCV RNA (08/15/2023 11:08 AM EDT) HEPATITIS C ANTIBODY NON-REACT [place] NON-REACT [place] [facility] Comment: HCV antibody was non-reactive. There is no laboratory evidence of HCV infection. In most cases, no further action is required. However, if recent HCV exposure is suspected, a test for HCV RNA (test code 41256) is suggested. For additional information please refer to http://FusionAds.Inaaya/faq/AAM61u6 (This link is being provided for informational/ educational purposes only.) Blood Blood / Unknown 08/15/2023 1 1:08 AM EDT 08/15/2023 11:16 AM EDT Berkley Shipman [facility] - BLOOD DRAW Edited R esult - Final [facility] [address] [place] [address], [facility] [address] [address] * HIV 1/2 AG & AB W/RFLX (4TH GEN) (08/15/2023 11:08 AM EDT) HIV AG/AB, 4TH GEN NON-REAC TIVE NON-REAC TIVE [facility] Comment: HIV-1 antigen and HIV-1/HIV-2 antibodies were not detected. There is no laboratory evidence of HIV infection. PLEASE NOTE: This information has been disclosed to you from records whose confidentiality may be protected by state law. If your state requires such protection, then the state law prohibits you from making any further disclosure of the information without the specific written consent of the person to whom it pertains, or as otherwise permitted by law. A general authorization for the release of medical or other information is NOT sufficient for this purpose. For additional information please refer to http://FusionAds.Inaaya/faq/WXJ019 (This link is being provided for informational/ educational purposes only.) The performance of this assay has not been clinically validated in patients less than 2 years old. Blood Blood / Unknown 08/15/2023 1 1:08 AM EDT 08/15/2023 11:16 AM EDT Berkley BAIRES-Waylon LAB - BLOOD DRAW Final Re sult [facility] [address] [address], [place] [facility] [address] [place] [address] from Last 3 Months or Most Recently Relevant to Health Maintenance [place] [facility] [employer] [address] [employer] Care Teams Core Carrier Relationship Specialty Start Date End Date Berkley Shipman FNP-C [address] [place] [address] PCP - General Internal Medicine 09/22/23
--- OUTSIDE RECORDS SUMMARY | 2025-07-05 15:10 | XMS_ITS | Clinical Summary ---
Author Organization [facility] Address [address] [place] [address] Care Team Providers Care Distillery Worker General Name Role Phone Unavailable Primary Care Provider Unavailabl e Encounters Date Type Department Care Team Description 05/24/2025 Population Health Risk Score [facility] (C[facility]) Department [address] [facility] [address] [place] [address] Provider, Population Health Generic from Last 3 Months Social History Tobacco Use Types Packs/Day Years Used Date Smoking Tobacco: Never Assessed Sex and Gender Information Value Date Recorded Sex Assigned at Not on file Legal Sex Male 9:17 PM EDT Gender Identity Not on file Sexual Orientation Not on file Plan of Treatment Health Maintenance Due Date Last Done Comments Depression Screening 1996 SDOH Screening 1996 Disability Screening 1996 Alcohol/Substance Use Screening 2008 Tobacco Screening 2008 Family Planning (PISQ) 2011 Hepatitis C Screening 2014 Hepatitis B Vaccines (1 of 3 - 19+ 3-dose series) 2015 Pneumococcal Vaccine: Pediatrics (0 to 5 Years) and At-Risk Patients (6 to 49) Years (1 of 2 - PCV) 2015 HPV Vaccines (2 - Male 3-dos e series) 09/12/2023 08/15/2023 COVID-19 Vaccine (2 - 2024-2 6 season) 2025 08/15/2023 Influenza Vaccine (#1) 2025 08/15/2023 DTaP/Tdap/Td Vaccines (2 - T d or Tdap) 08/08/2032 08/08/2022 Zoster Vaccines (1 of 2) 2046 RSV Patients and Patients Aged 60 years or older (1 - 1-dose 75+ series) 2071 HIV Screening Completed 08/15/2023, 08/15/2023 HIB Vaccines Aged Out No longer eligi [...] patient's age to complete this topic Meningococcal Vaccine Aged Out No obinna shital eligible based on patient's age to complete this topic RSV under 20 months Aged Out No longe r eligible based on patient's age to complete this topic Rotavirus Vaccines Aged Out No longer eligible based on patient's age to complete this topic
== END 2025-07-05 15:09 | disposition home or self-care (01) ==
LOC: HO.HSMS 13:57
PROVIDERS: PCP Registered Nurse; Visit Provider Nurse Practitioner Family
DX: G43.009 Migraine without aura, not intractable, without status migrainosus (principal); H53.2 Diplopia; R06.83 Snoring; G47.19 Other hypersomnia; R51.9 Headache, unspecified; R68.89 Other general symptoms and signs; R41.844 Frontal lobe and executive function deficit
CPT/HCPCS: 99214

== ENCOUNTER → 2025-07-05 13:56 | Outpatient (BNVA) | payer MEDICAID, SELFPAY | PROVIDERS: PCP Registered Nurse; Visit Provider Nurse Practitioner Family | DX: G43.009 Migraine without aura, not intractable, without status migrainosus (principal); H53.2 Diplopia; R06.83 Snoring; G47.19 Other hypersomnia; R41.844 Frontal lobe and executive function deficit | CPT/HCPCS: 99212 ==